=== PATIENT | female | born 1950 | race Caucasian/White ===

== ENCOUNTER → 2024-10-08 | Outpatient (CLI) | payer MEDICARE, OTHER, SELFPAY ==
[2024-10-08 11:05] LABS: Hematocrit 40.6 % (37-47); Hemoglobin 13.0 g/dL (12.0-15.0); Immature Granulocytes Count 0.010 X10^3/uL (0.0-0.0); Mean Corp Hgb Conc 32.0 g/dL (32-36); Mean Corpuscular Volume 90.0 fL (81-99); Mean Platelet Vol. 11.0 fl (6.2-12.0); NRBC Flagged by Analyzer 0 % (0-5); Platelet Count 189 K/mm3 (150-450); RBC Distribution Width CV 13.8 % (11.6-14.6); RBC Distribution Width SD 45.5 fl (35.1-43.9); Red Blood Count 4.51 M/mm3 (4.2-5.4); White Blood Count 4.9 K/mm3 (4.4-11.0)
[2024-10-08 11:38] LABS: AST(SGOT) 18 U/L (<=31); Alanine Aminotransfer ALT/SGPT 13 U/L (<=34); Albumin, Serum 4.1 g/dL (3.4-4.8); Alkaline Phosphatase 70 U/L (35-104); Anion Gap 10 (5-15); BUN 21 mg/dL (4-19); BUN/Creat Ratio 19.5 RATIO (10-20); CRP 3.41 mg/L (0.0-3.0); Calcium,Total 9.4 mg/dL (7.6-11.0); Carbon Dioxide 24.7 mmol/L (21.0-32.0); Chloride 107 mmol/L (98-108); Globulin 2.9 g/dL (2.2-4.2); Glucose 90 mg/dL (70-99); Potassium 4.9 mmol/L (3.3-5.1)
== END | disposition home or self-care (01) ==
PROVIDERS: PCP Internal Medicine; Referring Provider Student in an Organized Health Care Education/Training Program; Visit Provider Student in an Organized Health Care Education/Training Program
DX: K50.90 Crohn's disease, unspecified, without complications (principal)
CPT/HCPCS: 36415; 80053; 85025; 85652; 86140

== ENCOUNTER 2024-12-09 11:36 | Outpatient (RCR) | payer MEDICARE, OTHER, SELFPAY | END 2024-12-09 19:00 | disposition home or self-care (01) | LOC: PT 11:36 | PROVIDERS: PCP Internal Medicine; Referring Provider Orthopaedic Surgery; Visit Provider Orthopaedic Surgery | DX: M70.62 Trochanteric bursitis, left hip (principal) ==

== ENCOUNTER 2025-01-15 09:39 | Day surgery (SDC) | payer MEDICARE, OTHER, SELFPAY ==
[2025-01-15 10:03] VITALS: BP 153/74; BP 153/75; PULSE 82; RESP 16; TEMP 36.4; O2SAT 99; BMI 27.1
--- NOTE | 2025-01-15 10:06 | PCM.PRE.AN2 ---
ASA Classification* ASA Classification ASA Classification: 2 Assessment & Plan Anesthesia* Anesthesia Assessment Anesthesia Assessment: Discussed sedation and/or anesthesia options, risks, benefits, and alternatives with patient/parents/legal guardian/POA. Questions invited. The patient/parents/legal guardian/POA seems to understand and agrees to proceed with anesthesia plan. Reviewed the physical assessment, medical history, allergy history and patient home medications list prior to surgery/procedure/anesthetic and documented any changes. Performed airway and anesthesia risk assessments. Anesthesia Type Anesthesia Type: MAC Anesthesia Focused Assessment* Temperature: 97.6 F Pulse Rate: 82 Blood Pressure: 153/74 Respiratory Rate: 16 Pulse Ox: 99 Airway Assessment Mouth opens: >3 cm Mallampati Score: II Labs Anesthesia Preop lab: CBC WBC, (4.4-11.0) 4.9 K/mm3 10/08/24, 10:32 RBC, (4.2-5.4) 4.51 M/mm3 10/08/24, 10:32 Hgb, (12.0-15.0) 13.0 g/dL 10/08/24, 10:32 Hct, (37-47) 40.6 % 10/08/24, 10:32 Plt Count, (150-450) 189 K/mm3 10/08/24, 10:32 CHEMISTRY Potassium, (3.3-5.1) 4.9 mmol/L 10/08/24, 10:32 Sodium, (133-145) 142 mmol/L 10/08/24, 10:32 BUN, (4-19) 21 mg/dL H 10/08/24, 10:32 Creatinine, (0.70-1.20) 1.07 mg/dL 10/08/24, 10:32 Glucose, (70-99) 90 mg/dL 10/08/24, 10:32 COAG Pre-Assessment Diagnosis/Proposed Procedure Planned Operative Procedure(s): Flexible Sigmoidoscopy Anesthesia History 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 When Was Last Pacemaker Check QUESTION #4 FULL TEXT: You/Your Family Experience fever (hyperthermia) with Anesthesia Last Oral Intake Last Oral intake: Last Oral Intake NPO since 20:00 01/15/25 10:03 Meds taken in AM with sips of water? 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 Has anyone observed you stop breathing during sleep? STOP Results QUESTION #5 FULL TEXT : Do you snore loudly (louder than talking or can be heard through closed doors)? 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 Specify any problems Hx of Preganancy in last 3 Months Nurse Filling Out Transfusion & Questions: Date: Time: Patient unable to answer at this time (ie. 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: /Reproductive Hx- ash conveyor operator Hx Now Gestational Age (in weeks): EDC: Hx Hx Para Hx Section SAB Does the father of the baby or his family experience fever w Father of the baby Malignant Hypertension history comment Active Medications Active Medications: Current Medications Generic Name Dose Route Start Last Admin Trade Name Freq PRN Reason Stop Dose Admin Lactated Ringer's 1,000 mls @ 15 mls/hr 01/15/25 10:00 IV .Q48H [facility] Medical History Skin cancer Cataracts, bilateral Arthritis UTI (urinary tract infection) Hearing problem Glaucoma Hypertension Home Medications ?Medication ?Instructions ?Recorded ?Last Taken ?Type metronidazole 0.75 % lotion 1 applic topical BID 10/08/24 Unknown History (MetroLotion) acetaminophen 300 mg-codeine 30 mg 1 tab PO BID PRN pain 12/17/24 Unknown History tablet ciprofloxacin HCl 500 mg tablet 500 mg PO BID #14 tabs 12/17/24 Unknown Rx clobetasol 0.05 % scalp solution 1 applic topical QDAY PRN itching 12/17/24 Unknown History estradiol 0.01% (0.1 mg/gram) 1 g vaginal 2XW #42.5 grams 12/17/24 Unknown Rx vaginal cream (Estrace) hydrochlorothiazide 25 mg tablet 37.5 mg PO .2X/WEEK 12/17/24 Unknown History loperamide 2 mg capsule (Imodium 2 mg PO DAILY 12/17/24 Unknown History A-D) multivitamin 1 tab PO QAM 12/17/24 Unknown History rifaximin 550 mg tablet (Xifaxan) 550 mg PO BID 12/17/24 Unknown History valacyclovir 500 mg tablet 500 mg PO BID PRN sores #6 tabs 12/17/24 Unknown Rx (Valtrex) valsartan 160 mg tablet 160 mg PO QDAY #90 tabs 12/17/24 01/15/25 Rx vitamins A,C,U-iosl-vulpgx 4,296 1 cap PO QAM AND QPM 12/17/24 Unknown History mcg-226 mg-90 mg capsule (PreserVision AREDS) timolol 0.5 % eye drops 1 drp ophthalmic (eye) DAILY 01/11/25 Unknown History Allergy/AdvReac Type Severity Reaction Status Date / Time infliximab (From Remicade) Allergy Severe Anaphylaxis Verified 01/15/25 10:01 certolizumab pegol (From Allergy Intermediate lymph Verified 01/15/25 10:01 Cimzia) swelling Family History Mother Breast cancer Brother Cancer bladder cancer Father Hypertension Cancer soft tissue Surgical History H/O hernia repair H/O cataract extraction History of appendectomy H/O oophorectomy H/O tubal ligation History of partial colectomy History of surgery Social History household members: spouse housing: house current occupational status: retired Smoking Status: Never smoker alcohol intake: current alcohol intake frequency: a few times a week substance use type: does not use what type of physical activity do you participate in: none seatbelt use: always do you feel safe at home: Yes Review of Systems (Anesthesia) ROS Narrative System reviewed and no additional complaints, except as documented.
[2025-01-15] MEDS: Lactated Ringers 1,000 ML 15 ML IV (10:09)
[2025-01-15 10:11] VITALS: BP 153/74; PULSE 82; RESP 16; TEMP 36.4; O2SAT 99
--- NOTE | 2025-01-15 10:19 | HP.PCM_ITS ---
HPI - General General Date of Admission: 01/15/25 Date of Service: 01/15/25 Chief Complaint: History of Crohn's disease HPI Narrative ERNESTINA MAHONEY, is a 74 F who presents [Chief Complaint: History of Crohn's disease Pt with PMHx of Crohns from [place] here today for establishment. Previously seeing Gi at the [facility] for over 40 years. PMHx of left hemicolectomy in 1990 with ileocolonic anastomotic for colonic stricture. 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 Total abd colectomy with low anterior resection and ileorectal anastomotic in June of 2009. Sigmoidoscopy 01.02.24; hemorrhoids, hyperplastic polyps. Last OV at [facility] in [place] 03.05.24. She has not been on therapy for Crohns since 2016. SHe alternates antibiotics cipro and Xifaxan for SIBO. Currently in clinical remission. OV 10.08.24 patient doing well today. She has 4-5 bowel movements per day that are liquid. This is much better than it has been in the past. In the past she was treated with Cimzia, Remicade and azathioprine. Following her colectomy she was on Cimzia but has been off of this since 2016. She has yearly sigmoidoscopies and blood work for monitoring of her disease. She takes ciprofloxacin for 10 days once a month and then will take Xifaxan for 10 days the next month. [facility] Medical History Skin cancer Cataracts, bilateral Arthritis UTI (urinary tract infection) Hearing problem Glaucoma Hypertension Home Medications ?Medication ?Instructions ?Recorded ?Last Taken ?Type metronidazole 0.75 % lotion 1 applic topical BID 10/08 Unknown History (MetroLotion) acetaminophen 300 mg-codeine 30 mg 1 tab PO BID PRN pa in 12/17/24 Unknown History tablet ciprofloxacin HCl 500 mg tablet 500 mg PO BID #14 tabs 12/17/24 Unknown Rx clobetasol 0.05 % scalp solution 1 applic topical QDAY PRN itching 12/17/24 Unknown History estradiol 0.01% (0.1 mg/gram) 1 g vaginal 2XW #42.5 gr ams 12/17/24 Unknown Rx vaginal cream (Estrace) hydrochlorothiazide 25 mg tablet 37.5 mg PO .2X/WEEK 1 0/23/25 Unknown History loperamide 2 mg capsule (Imodium 2 mg PO DAILY 5 Unknown History A-D) multivitamin 1 tab PO QAM 12/17/24 Unknow n History rifaximin 550 mg tablet (Xifaxan) 550 mg PO BID Unknown History valacyclovir 500 mg tablet 500 mg PO BID PRN sores #6 tabs 12/17/24 Unknown Rx (Valtrex) valsartan 160 mg tablet 160 mg PO QDAY #90 tabs 11/2601/15/25 Rx vitamins A,C,F-vkel-aumbss 4,296 1 cap PO QAM AND QPM 12/17/24 Unknown History mcg-226 mg-90 mg capsule (PreserVision AREDS) timolol 0.5 % eye drops 1 drp ophthalmic (eye) DAILY 01/11/25 Unknown History Allergy/AdvReac Type Severity Reaction Status Date / Time infliximab (From Remicade) Allergy Severe Anaphylaxis Verified 01/15/25 10:01 certolizumab pegol (From Allergy Intermediate lymph Verified 01/15/25 10:01 Cimzia) swelling Family History Mother Breast cancer Brother Cancer bladder cancer Father Hypertension Cancer soft tissue Surgical History H/O hernia repair H/O cataract extraction History of appendectomy H/O oophorectomy H/O tubal ligation History of partial colectomy History of surgery Social History household members: spouse housing: house current occupational status: retired Smoking Status: Never smoker alcohol intake: current alcohol intake frequency: a few times a week substance use type: does not use what type of physical activity do you participate in: none seatbelt use: always do you feel safe at home: Yes ROS Constitutional Constitutional: Denies fatigue, fever(s), poor appetite, weight gain or weight loss Gastrointestinal Gastrointestinal: Denies belching, bloating, change in bowel habits, change in stool character, chewing difficulty, coffee ground emesis, constipation, cramping, diarrhea, dyspepsia, dysphagia, early satiety, excessive flatus, fecal incontinence, heartburn, hematemesis, hematochezia, hemorrhoids, loose stools, melena, nausea, odynophagia, rectal bleeding, tenesmus, vomiting or weight changes Vital Signs Vital Signs Vital Signs: 01/15/25 10:03 01/15/25 10:03 01/15/25 10:03 Temperature 97.6 F L Temperature Source Temporal Pulse Rate 82 Respiratory Rate 16 Respiratory Pattern Normal Blood Pressure 153/74 H Blood Pressure Mean 100 Blood Pressure Source Monitor Blood Pressure Position Semi-Fowlers Blood Pressure Location Left Arm Baseline BP 153/75 Pulse Ox 99 Oxygen Delivery Method Room Air 01/15/25 10:11 Temperature 97.6 F L Temperature Source Pulse Rate 82 Respiratory Rate 16 Respiratory Pattern Blood Pressure 153/74 H Blood Pressure Mean Blood Pressure Source Blood Pressure Position Blood Pressure Location Baseline BP Pulse Ox 99 Oxygen Delivery Method Weight Weight: 157 lb 13.616 oz Body Mass Index (BMI) 27.1 Physical Exam Const alert, oriented x3, no apparent distress and healthy appearing General Appearance: cooperative GI normal to inspection, nondistended, normoactive bowel sounds, soft to palpation, non-tender and non-distended Percussion: normal to percussion Rectal Exam: deferred Assessment & Plan Assessment/Plan (1) Crohn's disease: QUALIFIERS: Gastrointestinal tract location: large intestine Digestive disease complication type: without complication Qualified Code(s): K50.10 - Crohn's disease of large intestine without complications PLAN: Assessment and Plan Assessment and Plan (1) Crohn's disease: Status: Acute Plan: Ernestina is a 74-year-old female patient here today for establishment regarding her Crohn's disease. She was diagnosed with Crohn's disease in the 70s and has been seen by the [facility] in [place] for the past 40 years for treatment of her disease. She is status post left hemicolectomy in 1990 with ileocolonic anastomosis for colonic stricture and total abdominal colectomy with lower anterior resection and ileorectal anastomosis in June 2009. Following the surgeries she was treated with Cimzia but this was discontinued in 2015 and she has not been on biologic therapy since. She is in clinical remission. She undergoes yearly sigmoidoscopies for monitoring of her disease. Current treatment regimen is ciprofloxacin for 10 days every other month and Xifaxan for 10 days every other month. Today she feels well with no flares in her disease. Will order baseline blood work with CBC, CMP, ESR and CRP. Stool calprotectin ordered. She was scheduled for sigmoidoscopy without sedation as she prefers to watch during the procedure. - CBC, CMP ESR and CRP - Stool calprotectin - Sigmoidoscopy - Follow-up after procedure Orders: Orders CBC W/Diff, Automated Today K50.90 - Crohn's disease, unspecified, without complications Comprehensive Metabolic Profil Today K50.90 - Crohn's disease, unspecified, without complications Erythrocyte Sed Rate Today K50.90 - Crohn's disease, unspecified, without complications CRP Today K50.90 - Crohn's disease, unspecified, without complications Calprotectin, Stool Today K50.90 - Crohn's disease, unspecified, without complications Medications: New ciprofloxacin HCl (Cipro) 500 mg PO BID 20 tabs 0RF 10 days Discontinued ciprofloxacin HCl Discontinued Reason: Discontinued by PCP/other physicians 250 mg PO BID
--- NOTE | 2025-01-15 10:30 | COLBX_PTH ---
PATIENT: ERNESTINA MAHONEY LOC: EN U#:[id number] AGE/SX: 74/F ROOM: RE01/15/[address]: Dr. Alexys Camacho DO : 1950 BED: DIS: 01/15/2025 SPEC #: [id number] RECD: 01/15/25 12:51 STATUS: TAMMY REQ #: [id number] HERO: 01/15/25 10:[address]: Alexys Camacho DEPT: SURGICAL PATHOLOGY RECD BY: Goran Iraheta ENTERED: 01/15/25 14:49 SP TYPE: COLON BX OT DR: Dr. Annalee Chapa MD Tissues: A - COLON BIOPSY Procedures: Surgery Specimen Level IV HEADER OPERATION: Flexible sigmoidoscopy with biopsy PRE-OP DIAGNOSIS: Crohn's disease TISSUE SUBMITTED: A- Colorectal anastomosis biopsy MICROSCOPIC DIAGNOSIS A. Anastomosis, colorectal, biopsy: * Intestinal mucosa with no pathologic change MICROSCOPIC DESCRIPTION Slides are reviewed. GROSS DESCRIPTION A. Received in fixative is one container labeled with the patient's name and designated Colorectal anastomosis biopsy. The specimen consists of two irregular fragments of wray tissue, each measuring 0.5 cm. The specimen is totally submitted in one cassette. [place] 01/15/2025 CPT:80821
[2025-01-15 11:09] VITALS: BP 184/79; O2SAT 97
--- NOTE | 2025-01-15 11:26 | OP.PROVAT_ITS ---
01/15/2025 Patricia Villagran MD [address] [place] [address] [place] [address] Re : Flexible Sigmoidoscopy procedure for Donna Sage Dear Dr. Villagran This procedure was performed on Wednesday, January 15, 2025. My impressions and recommendations are as follows: Impressions : - Patent functional end-to-end ileo-rectal anastomosis, characterized by healthy appearing mucosa. Biopsied. Recommendations : My findings are described in the full procedure note, which is enclosed. If I can be of further assistance, please feel free to contact me at . Sincerely, Alexys Camacho, 01/15/2025 11:26:06 AM This report has been signed electronically.
--- NOTE | 2025-01-15 11:26 | OP.FLEXSIG_ITS ---
Patient Name: Donna Sage Procedure Date: 01/15/2025 11:04 AM Date of : 1950 Age: 74 Procedure: Flexible Sigmoidoscopy Indications: High risk colon cancer surveillance: Crohn's colitis of 8 (or more) years duration with one-third (or more) of the colon involved, High risk colon cancer surveillance: Crohn's small and large intestine Providers: Alexys Camacho, Medicines: None Patient Profile: This is a 74 year old female. Refer to note in patient chart for documentation of history and physical. Patient has symptoms. Complications: No immediate complications. Procedure: Pre-Anesthesia Assessment: - Prior to the procedure, a History and Physical was performed, and patient medications and allergies were reviewed. The patient is competent. The risks and benefits of the procedure and the sedation options and risks were discussed with the patient. All questions were answered and informed consent was obtained. Patient identification and proposed procedure were verified by the physician in the pre-procedure area. Mental Status Examination: alert and oriented. Airway Examination: normal oropharyngeal airway and neck mobility. Respiratory Examination: clear to auscultation. CV Examination: normal. Prophylactic Antibiotics: The patient does not require prophylactic antibiotics. Prior Anticoagulants: The patient has taken no anticoagulant or antiplatelet agents. ASA Grade Assessment: II - A patient with mild systemic disease. After reviewing the risks and benefits, the patient was deemed in satisfactory condition to undergo the procedure. The anesthesia plan was to use no sedation or anesthesia. Immediately prior to administration of medications, the patient was re-assessed for adequacy to receive sedatives. The heart rate, respiratory rate, oxygen saturations, blood pressure, adequacy of pulmonary ventilation, and response to care were monitored throughout the procedure. The physical status of the patient was re-assessed after the procedure. After obtaining informed consent, the endoscope was passed under direct vision. Throughout the procedure, the patient's blood pressure, pulse, and oxygen saturations were monitored continuously. The colonoscope was introduced through the anus and advanced to the ileo-rectal anastomosis. The flexible sigmoidoscopy was accomplished without difficulty. The patient tolerated the procedure well. The quality of the bowel preparation was adequate. Scope In: 11:12:05 AM Scope Out: 11:18:51 AM Total Procedure Duration Time 0 hours 6 minutes 46 seconds Findings: The perianal and digital rectal examinations were normal. There was evidence of a prior functional end-to-end ileo-rectal anastomosis in the rectum. This was patent and was characterized by healthy appearing mucosa. The anastomosis was traversed. Biopsies were taken with a cold forceps for histology. Verification of patient identification for the specimen was done. Estimated blood loss was minimal. Impression: - Patent functional end-to-end ileo-rectal anastomosis, characterized by healthy appearing mucosa. Biopsied. Procedure Code(s): --- Professional --- 12703, Sigmoidoscopy, flexible; with biopsy, single or multiple CPT copyright 2021 [employer]. All rights reserved. The codes documented in this report are preliminary and upon nutrition professor review may be revised to meet current compliance requirements. Alexys Camacho DO 01/15/2025 11:26:06 AM This report has been signed electronically. Number of Addenda: 0 Note Initiated On: 01/15/2025 11:04 AM
[2025-01-15 11:28] VITALS: BP 153/75
== END 2025-01-15 11:33 | disposition home or self-care (01) ==
LOC: EN 09:41 → AC 09:54
PROVIDERS: PCP Internal Medicine; Referring Provider Internal Medicine; Visit Provider Internal Medicine Gastroenterology
PROC: 0DJD8ZZ Inspection of Lower Intestinal Tract, Via Natural or Artificial Opening Endoscopic (ICD-10-PCS; CPT 45330; principal; 2025-01-15 10:25)
DX: K50.80 Crohn's disease of both small and large intestine without complications (principal); I10 Essential (primary) hypertension; Z90.49 Acquired absence of other specified parts of digestive tract; Z98.0 Intestinal bypass and anastomosis status; Z79.899 Other long term (current) drug therapy
CPT/HCPCS: 45331; 88305